=== PATIENT | female | born 1965 | race African-American/Black ===

== ENCOUNTER 2019-08-03 09:44 | Emergency (ER) | payer MEDICAID ==
[~2019-08-03] VITALS: Ht 165.1 cm; Wt 50.0 kg
[~2019-08-03 09:44] MED LIST: Folic Acid PO; Lisinopril PO; METH4TAB17 PO; Thiamine Hcl PO
[2019-08-03] MEDS ORDERED: KETOROLAC 60MG/2ML VIAL IM ONE (10:45)
[2019-08-03 10:52] VITALS: BP 121/86
== END 2019-08-03 12:50 | disposition home or self-care (01) ==
LOC: ER 09:52
DX: M54.5 Low back pain (principal); M54.2 Cervicalgia; M41.9 Scoliosis, unspecified; Z98.890 Other specified postprocedural states
CPT/HCPCS: 72040; 72100; 96372; 99283; J1885